=== PATIENT | female | born 1970 | race Caucasian/White ===

== ENCOUNTER 2018-10-12 20:23 | Emergency (ER) | payer OTHER ==
[2018-10-12 20:43] VITALS: BP 117/67
--- NOTE | 2018-10-12 21:09 | UC ---
Complaint Female HPI - HPI Summary HPI Summary: Burning on urination and frequency over the past 1-2 days. - History Of Current Complaint Chief Complaint: UCGU Stated Complaint: URINARY COMPLAINT Time Seen by Provider: 10/12/18 20:52 Hx Obtained From: Patient Hx Last Menstrual Period: partial hysterectomy 1998 ?: No Onset/Duration: Gradual Onset Timing: Intermittent Severity Initially: Mild Severity Currently: Mild Pain Intensity: 3 Character: Burning Aggravating Factor(s): Urination Alleviating Factor(s): Nothing Associated Signs And Symptoms: Negative: Back Pain, Nausea, Vomiting(# Of Episodes =) - Allergies/Home Medications Allergies/Adverse Reactions: Allergies Allergy/AdvReac Type Severity Reaction Status Date / Time Penicillins Allergy Hives Verified 10/12/18 20:45 PMH/Surg Hx/FS Hx/Imm Hx Previously Healthy: Yes - Surgical History Surgical History: Yes Surgery Procedure, Year, and Place: hyster,c/sec,bunioectomy septoplasty - Social History Alcohol Use: None Substance Use Type: None Smoking Status (MU): Former Smoker Review of Systems All Other Systems Reviewed And Are Negative: Yes Constitutional: Positive: Fever - States she thinks she's had a mild fever but she doesn't associate that with the urinary symptoms. Skin: Positive: Negative Eyes: Positive: Negative ENT: Positive: Negative Respiratory: Positive: Negative Cardiovascular: Positive: Negative Gastrointestinal: Positive: Negative Genitourinary: Positive: Dysuria, Frequency, Urgency. Negative: Vaginal/Penile Discharge Motor: Positive: Negative Neurovascular: Positive: Negative Musculoskeletal: Positive: Negative Neurological: Positive: Negative Psychological: Positive: Negative Is Patient Immunocompromised?: No Physical Exam Triage Information Reviewed: Yes Appearance: Well-Appearing, No Pain Distress, Well-Nourished Vital Signs: Initial Vital Signs Temp 98.3 F 10/12/18 20:37 Pulse 66 10/12/18 20:37 Resp 16 10/12/18 20:37 BP 117/67 10/12/18 20:37 Pulse Ox 100 10/12/18 20:37 Vital Signs Reviewed: Yes Eye Exam: Normal Neck exam: Normal Neck: Positive: Supple, Nontender, No Lymphadenopathy Respiratory Exam: Normal Cardiovascular Exam: Normal Abdominal Exam: Normal Abdomen Description: Positive: Nontender, No Organomegaly, Soft Bowel Sounds: Positive: Present Musculoskeletal Exam: Normal Neurological Exam: Normal Psychological Exam: Normal Skin Exam: Normal Complaint Female Dx - Course Course Of Treatment: Comfortable here. U/A positive for UTI. 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 - Differential Dx/Diagnosis Differential Diagnosis/HQI/PQRI: Urinary Tract Infection Provider Diagnosis: UTI (urinary tract infection) Discharge - Sign-Out/Discharge Documenting (check all that apply): Patient Departure All imaging exams completed and their final reports reviewed: No Studies - Discharge Plan Condition: Good Disposition: HOME Prescriptions: Phenazopyridine TAB* [Pyridium 100 mg TAB*] 100 mg PO TID 2 Days #6 tab Sulfamethox/Trimethoprim DS* [Bactrim DS 800/160 TAB*] 1 tab PO BID 4 Days #8 tab Patient Education Materials: Urinary Tract Infection in Women (DC) Referrals: Alexandre Mejia ECHOCARDIOGRAPH TECH [Primary Care Provider] - Additional Instructions: Increase fluids, go to the ER if you run a fever, vomiting, back pain or unable t keep the medicine down - Billing Disposition and Condition Condition: GOOD Disposition: Home
[2018-10-12] MEDS ORDERED: Sulfamethox/Trimethoprim DS 800/160* TAB PO ONE ×2 (21:13→21:14)
[2018-10-12] MEDS ORDERED: Phenazopyridine TAB* 100 MG PO ONE (21:27)
--- NOTE | 2018-10-15 17:11 | UC ---
- Progress Note Progress Note: 10/15/2018 Urine culture positive for E.coli Pt Rx Bactrim PO Final reports shows sensitivity for Bactrim PO No change Robyn Gimenez PA-C Course/Dx - Diagnoses Provider Diagnoses: UTI (urinary tract infection) Discharge - Sign-Out/Discharge Documenting (check all that apply): Patient Departure - D/c home All imaging exams completed and their final reports reviewed: No Studies - Discharge Plan Condition: Good Disposition: HOME Prescriptions: Phenazopyridine TAB* [Pyridium 100 mg TAB*] 100 mg PO TID 2 Days #6 tab Sulfamethox/Trimethoprim DS* [Bactrim DS 800/160 TAB*] 1 tab PO BID 4 Days #8 tab Patient Education Materials: Urinary Tract Infection in Women (DC) Referrals: Alexandre Mejia PROJECT DEVELOPMENT DIRECTOR [Primary Care Provider] - Additional Instructions: Increase fluids, go to the ER if you run a fever, vomiting, back pain or unable t keep the medicine down - Billing Disposition and Condition Condition: GOOD Disposition: Home - Attestation Statements Provider Attestation: I was available for consult. This patient was seen by the AGUSTIN. The patient was not presented to, seen by, or examined by me. -Luis E
== END 2018-10-12 21:34 | disposition home or self-care (01) ==
LOC: UCEAST 20:23
DX: N39.0 Urinary tract infection, site not specified (principal); Z87.891 Personal history of nicotine dependence; Z88.0 Allergy status to penicillin
CPT/HCPCS: 81003; 87077; 87086; 87186; 99213; A9270-GY; G0463

== ENCOUNTER 2018-12-15 18:23 | Emergency (ER) | payer OTHER ==
[2018-12-15 18:45] VITALS: BP 110/65
--- NOTE | 2018-12-15 19:33 | UC ---
Complaint Female HPI - HPI Summary HPI Summary: 48 y/o female presents to the urgent care c/o frequency and burning on urination since last night. She states similar symptoms about 2 months ago and was seen here at the clinic. Pt states pain w/ urination is mild 2/10 associated mild lower back. Pt has been drinking water. Pt also c/o left shoulder Pain after sleeping in the wrong way for for the past 2 months, specially when she tries to raise her arm. Pain is 4/10 w/ certain movements. She denies swelling, numbness or tingling sensation over the left arm, fever, flank pain, abdominal pain, SOB, chest pain, N/V/D, vaginal discharge, Hx of STD 's.Pt denies any previous injury to that shoulder. - History Of Current Complaint Chief Complaint: UCGU Stated Complaint: UTI Time Seen by Provider: 12/15/18 19:18 Hx Obtained From: Patient Hx Last Menstrual Period: partial hysterectomy 1998 ?: No Onset/Duration: Gradual Onset, Lasting Days - 1 day, Still Present Timing: Intermittent Severity Initially: Mild Severity Currently: Mild Pain Intensity: 2 Pain Scale Used: 0-10 Numeric Character: Burning Aggravating Factor(s): Urination Alleviating Factor(s): Nothing Associated Signs And Symptoms: Negative: Fever, Back Pain, Vaginal Bleeding/ Discharge, Nausea, Vomiting(# Of Episodes =) - Risk Factors Ectopic Risk Factor: Negative Ovarian Torsion Risk Factor: Negative - Allergies/Home Medications Allergies/Adverse Reactions: Allergies Allergy/AdvReac Type Severity Reaction Status Date / Time Penicillins Allergy Hives Verified 12/15/18 18:45 Home Medications: Home Medications Ibuprofen TAB* [Advil TAB*] 600 mg PO ONCE PRN 12/15/18 [History Confirmed 12/15] PMH/Surg Hx/FS Hx/Imm Hx Previously Healthy: Yes Endocrine History: Dyslipidemia - diet controlled - Surgical History Surgical History: Yes Surgery Procedure, Year, and Place: hyster,c/sec,bunioectomy, septoplasty - Family History Known Family History: Positive: Cardiac Disease - Social History Occupation: Employed Full-time Lives: With Family Alcohol Use: None Substance Use Type: None Smoking Status (MU): Former Smoker Review of Systems All Other Systems Reviewed And Are Negative: Yes Constitutional: Positive: Negative Skin: Positive: Negative Eyes: Positive: Negative ENT: Positive: Negative Respiratory: Positive: Negative Cardiovascular: Positive: Negative Gastrointestinal: Positive: Negative Genitourinary: Positive: Dysuria, Frequency, Urgency Motor: Positive: Negative Neurovascular: Positive: Negative Musculoskeletal: Positive: Decreased ROM - left shoulder, Other: - left shoulder pain for the past 2 months Neurological: Positive: Negative Psychological: Positive: Negative Is Patient Immunocompromised?: No Physical Exam - Summary Physical Exam Summary: VITAL SIGNS: Reviewed. GENERAL: Patient is a well developed and nourished female who is sitting comfortable in the examining table. Patient is not in any acute respiratory distress. HEAD AND FACE: No signs of trauma. No ecchymosis, hematomas or skull depressions. No sinus tenderness. EYES: PERRLA, EOMI x 2, No injected conjunctiva, clear watery eyes, no nystagmus. No photophobia. EARS: Hearing grossly intact. Ear canals and tympanic membranes are within normal limits. MOUTH: pharynx with no erythema, no exudates,no palatal petechiae. no B/L tonsillar enlargement Uvula in midline. NECK: Supple, trachea is midline, no lymphadenopathy, no JVD, no carotid bruit, no c-spine tenderness, neck with full ROM. CHEST: Symmetric, no tenderness at palpation LUNGS: Clear to auscultation bilaterally. No wheezing or crackles. CVS: Regular rate and rhythm, S1 and S2 present, no murmurs or gallops appreciated. ABDOMEN: Soft, non-tender. No signs of distention. No rebound no guarding, and no masses palpated. Bowel sounds are normal. BACK:no scoliosis or lesions, non tender to palpation, No B/L CVA tenderness EXTREMITIES: LF shoulder: The L shoulder is without obvious asymmetry or deformity when compared to the R shoulder. No ecchymosis or bruising, no crepitus. No bony deformity or prominence of humeral head. No erythema, warmth. No Point Tenderness to palpation over the clavicle, or scapula. positive tenderness over Acromioclavicular joint and humeral head on abduction, NT to palpation of the bicipital groove . NT to palpation of the muscles of the sternocleidomastoid, pectoralis, biceps/triceps, deltoid, trapezius, . Limited ROM due to pain especially in abduction.on both passive and active, internal/external rotation, flexion/extension. "empty can and drop arm test unable to perform due to pain. No axillary tenderness or lymphadenopathy. Normal sensation over the deltoid and fingers. Distal motor and neurovascular status is intact. NEURO: Alert and oriented x 3. No acute neurological deficits. Speech is normal and follows commands. SKIN: Dry and warm Triage Information Reviewed: Yes Vital Signs: Initial Vital Signs Temp 98.3 F 12/15/18 18:40 Pulse 66 12/15/18 18:40 Resp 16 12/15/18 18:40 BP 110/65 12/15/18 18:40 Pulse Ox 99 12/15/18 18:40 Complaint Female Dx - Course Course Of Treatment: 48 y/o female presents to the urgent care c/o frequency and burning on urination since last night. She states similar symptoms about 2 months ago and was seen here at the clinic. Pt states pain w/ urination is mild 2/10 associated mild lower back. Pt has been drinking water. Pt also c/o left shoulder Pain after sleeping in the wrong way for for the past 2 months, specially when she tries to raise her arm. Pain is 4/10 w/ certain movements. She denies swelling, numbness or tingling sensation over the left arm, fever, flank pain, abdominal pain, SOB, chest pain, N/V/D, vaginal discharge, Hx of STD 's. Pt denies any previous injury to that shoulder. Hx obtained. Pt w/ Dysuria symptoms and possible Left shoulder tendonitis on examination. UA results: Leukoesterase 3+. Pt denies vaginal discharge. Pt Rx Macrobid 100mg PO x 7 days. Pyridium 100mg PO TID x 2 days. Advised to increase fluid intake. Urine sent for culture if any abnormality Pt will be notified for further treatment. Pt declined Left shoulder X-ray. Pt's shoulder immobilized w/ a shoulder sling for 3-4 days and advised to take Ibuprofen PO to alleviate symptoms. Pt also given a referral w/ Orthopedic from Sports Medicine iif not improvement of symptoms. D/C instructions explained. Pt understood and agreed. Left the clinic ambulating. - Differential Dx/Diagnosis Differential Diagnosis/HQI/PQRI: Cervicitis, Pelvic Inflammatory Disease, Renal Colic, Ureteral Stone, Urinary Tract Infection Provider Diagnosis: UTI (urinary tract infection), Left shoulder tendinitis Discharge - Sign-Out/Discharge Documenting (check all that apply): Patient Departure - d/c home All imaging exams completed and their final reports reviewed: No Studies - Discharge Plan Condition: Stable Disposition: HOME Prescriptions: Ibuprofen TAB* [Motrin TAB* 600 MG] 600 mg PO Q6H PRN #30 tab PRN Reason: shoulder pain Nitrofurantoin Macrocrystals* [Macrodantin 100 mg*] 100 mg PO BID #14 cap Phenazopyridine TAB* [Pyridium 100 mg TAB*] 100 mg PO TID #6 tab Patient Education Materials: Urinary Tract Infection in Women (ED), Tendinitis (ED) Referrals: Alexandre Mejia NP [Primary Care Provider] - 3 Days [facility] [Provider Group] - 1 Week Additional Instructions: 1- Please take Macrobid 100mg PO x 7 days. Pyridium 100 mg PO TID x 2 days to alleviate urinary symptoms. Increase increase fluid intake. drink cranberry juice. 2-Urine sent for culture if any abnormality, you will be notified for further treatment. If not improvement of symptoms please f/u w/ your PCP for further management. 3-Please apply ice, keep your shoulder immobilized with the shoulder sling for 3-4 days and then resume movement slowly 4- Please f/u with Orthopedic from Sports Medicine in 1 week is not improvement of symptoms for further evaluation and treatment. - Billing Disposition and Condition Condition: STABLE Disposition: Home
== END 2018-12-15 20:00 | disposition home or self-care (01) ==
LOC: UCEAST 18:23
DX: N39.0 Urinary tract infection, site not specified (principal); M75.92 Shoulder lesion, unspecified, left shoulder; E78.5 Hyperlipidemia, unspecified; Z88.0 Allergy status to penicillin; Z87.891 Personal history of nicotine dependence
CPT/HCPCS: 81003; 87077; 87086; 87186; 99213; G0463